=== PATIENT | female | born 2000 | race Caucasian/White ===

== ENCOUNTER 2021-09-03 16:37 | Emergency (ER) | payer OTHER ==
--- NOTE | 2021-09-03 17:05 | ED Physician Documentation ---
PD HPI FOCAL NEURO - Stated complaint Stated Complaint: INTERMITENT VISION LOSS/HEADACHE - Chief complaint Chief Complaint: Neuro - History obtained from History obtained from: Patient - Additional information Additional information: Previously healthy 21-year-old woman who does not use any visual correction for the last 5 days has had bilateral eye blurry vision especially when she walks or turns her head. If she stops moving the sensation goes away after about 5 seconds. It is associated with some retro-orbital pain radiating to the occiput. That is mild. No vomiting. No other neurologic symptoms. Symptoms do not seem worse in a bright room nor a dark room nor outside. Review of Systems Constitutional: denies: Fever, Chills Eyes: reports: Loss of vision, Decreased vision. denies: Photophobia, Discharge, Irritation Nose: denies: Rhinorrhea / runny nose, Congestion Throat: denies: Sore throat PD PAST MEDICAL HISTORY - Past Medical History Past Medical History: No Cardiovascular: None Respiratory: None Neuro: None Endocrine/Autoimmune: None GI: None AED TRAINER: None : None HEENT: None Psych: None Musculoskeletal: None Derm: None - Past Surgical History Past Surgical History: No - Present Medications Home Medications: Ambulatory Orders Medication Instructions Recorded Confirmed No Known Home Medications 09/03/21 09/03/21 - Allergies Allergies/Adverse Reactions: Allergies Allergy/AdvReac Type Severity Reaction Status Date / Time No Known Drug Allergies Allergy Verified 09/03/21 16:47 - Social History Does the pt smoke?: No Smoking Status: Never smoker PD ED PE NORMAL - Vitals Vital signs reviewed: Yes - General General: Alert and oriented X 3, No acute distress - HEENT HEENT: PERRL, EOMI, Other (nondilated funduscopic exam and slit-lamp exam were unremarkable) - Neck Neck: Supple, no meningeal sign, No bony TTP - Neuro Neuro: Alert and oriented X 3, pipeline controller 2-12 intact, No motor deficit, No sensory deficit, Normal speech (Normal [id number] and [id number] testing), Other Eye Opening: Spontaneous Motor: Obeys Commands Verbal: Oriented GCS Score: 15 Results - Vitals Vitals: Vital Signs - 24 hr 09/03/21 09/03/21 16:45 16:54 Temperature 36.3 C L Heart Rate 65 Respiratory 16 14 Rate Blood Pressure 129/66 O2 Saturation 100 Oxygen O2 Source Room air PD MEDICAL DECISION MAKING - ED course ED course: 21-year-old woman with brief blurry vision especially with walking or head turning. No symptoms referable to allergic conjunctivitis and her exam is unremarkable. CT angiography of the head is without aneurysm or other a bnormality. Fingerstick blood sugar is unremarkable. From my perspective there is no Remaining emergency medical condition and she is advised to follow-up with ophthalmology. She does have a headache with it but she states it is quite mild. Departure - Departure Disposition: Home, Self Care Clinical Impression: Blurry vision Headache Qualifiers: Headache type: unspecified Headache chronicity pattern: episodic headache Intractability: not intractable Qualified Code(s): R51.9 - Headache, unspecified Condition: Good Record reviewed to determine appropriate education?: Yes Follow-Up: Blair Grider MD [Provider Admit Priv/Credential] - Comments: The cause of your blurry vision is unclear, return for new or worsening symptoms. Follow-up with the manager workers compensation early next week calling Monday morning for an appointment. The number is on this form. CT angiography of the head and fingerstick blood sugar were unremarkable.
[2021-09-03] MEDS ORDERED: IOVERSOL 320 100 ML VIAL IVP ONE ×2 (17:15→17:38)
--- NOTE | 2021-09-03 17:54 | CT Report ---
PROCEDURE: CT brain without contrast, CT angiogram brain with contrast INDICATIONS: headache CONTRAST: IV CONTRAST: Optiray 320 ml: 80 PO CONTRAST: *NO PO CONTRAST TECHNIQUE: Helical axial CT of the brain was obtained before and after intravenous contrast administration [facility] an angiographic protocol. For radiation dose reduction, the following was used: automated expos ure control, adjustment of mA and/or kV according to patient size. COMPARISON: None FINDINGS: Image quality: Excellent. Anterior circulation: Intracranial internal carotid arteries are normal in size and flow. The flow within the paired anterior cerebral arteries is normal and symmetric. The flow within the middle cer ebral arteries is normal and symmetric. The anterior communicating artery is seen. No aneurysms are seen. Posterior circulation: Visualized portions of the vertebral arteries demonstrate normal caliber, and join to form a normal appearing basilar artery. Hypoplasia/aplasia of the left P1 COLD STORAGE SUPERVISOR noted. The P2 segment is supplied by a widely patent posterior communicating artery. Remainder of the distal vascu lature unremarkable. . No aneurysms are seen. CSF spaces: Ventricles are normal in size and shape. Basal cisterns are patent. No extra-axial flu id collections. Brain: No midline shift. No intracranial bleeds or masses. Morelos-white matter interface appears int act. Skull and face: Calvarium and facial bones appear intact, without suspicious lesions. Sinuses: Visualized sinuses and mastoids are clear. IMPRESSION: 1. Normal CT of the brain. No intracranial hemorrhage or mass effect. 2. Unremarkable CT angiogram of the brain without evidence of large vessel occlusion, aneurysm or vas cular malformation Reviewed by: Lex Andrade MD on 09/03/2021 4:53 PM AKNANCY Approved by: Lex Andrade MD on 09/03/2021 4:53 PM AKDT Station ID: [id number]
[2021-09-03 18:13] VITALS: BP 118/73
== END 2021-09-03 18:13 | disposition home or self-care (01) ==
LOC: ED 16:37
DX: H53.8 Other visual disturbances (principal); R51.9 Headache, unspecified
CPT/HCPCS: 70496; 99282; Q9967

== ENCOUNTER 2023-09-26 14:37 | Outpatient (CLI) | payer OTHER ==
--- NOTE | 2023-09-26 15:36 | XRAY Report ---
PROCEDURE: SI Joints 3+V INDICATIONS: LOW BACK PAIN TECHNIQUE: 3 views of the sacroiliac joints were acquired. COMPARISON: None. FINDINGS: Bones: No bony erosions or ankylosis. No significant degenerative change of either sacroiliac joint . No suspicious bony lesions. No fractures. Soft tissues: Overlying bowel gas pattern is normal. No suspicious soft tissue densities. IMPRESSION: No acute bony abnormality. No radiographic evidence of sacroiliitis. Reviewed by: Abby Lacy MD on 09/26/2023 3:35 PM PDT Approved by: Abby Lacy MD on 09/26/2023 3:35 PM PDT Station ID: [id number]
== END 2023-09-26 14:38 | disposition home or self-care (01) ==
LOC: DI 14:37
PROVIDERS: ATTEND Physician Assistant
DX: M54.50 Low back pain, unspecified (principal)

== ENCOUNTER 2023-12-01 10:36 | Outpatient (CLI) | payer OTHER ==
[2023-12-01 12:36] LABS: AMPHETAMINE SCREEN,URINE NEGATIVE (NEGATIVE); BARBITURATE SCREEN,UR NEGATIVE (NEGATIVE); BENZODIAZEPINES SCREEN, URINE NEGATIVE (NEGATIVE); BUPRENORPHINE SCREEN, URINE NEGATIVE (NEGATIVE); COCAINE SCREEN URINE NEGATIVE (NEGATIVE); METHADONE SCREEN, URINE NEGATIVE (NEGATIVE); METHAMPHETAMINES SCREEN, URINE NEGATIVE (NEGATIVE); OPIATE SCREEN, URINE NEGATIVE (NEGATIVE); OXYCODONE SCREEN, URINE NEGATIVE (NEGATIVE); THC CANNABINOID SCREEN, URINE NEGATIVE (NEGATIVE); TRICYCLIC ANTIDEPRESSANT,URINE NEGATIVE (NEGATIVE)
== END 2023-12-01 10:37 | disposition home or self-care (01) ==
LOC: LAB.N 10:36
PROVIDERS: ATTEND Physician Assistant
DX: Z02.1 Encounter for pre-employment examination (principal); Z11.1 Encounter for screening for respiratory tuberculosis
CPT/HCPCS: 80306; 81599